=== PATIENT | male | born 1975 | race Two or more races ===

== ENCOUNTER 2018-09-28 03:13 | Emergency (ER) | payer SELFPAY ==
[~2018-09-28] VITALS: Ht 172.7 cm; Wt 77.1 kg
--- NOTE | 2018-09-28 03:40 | NUR ---
PT CAME IN FOR C/O DIFFICULTY SWALLOWING, WITH COUGH, FEELING LIKE SOMETHING IS STUCK IN HIS THROAT AFTER HAVING SOUP, VS STABLE DENIES ANY SOB Addendum: 09/28/18 at 0408 by GKNERY XR SOFT TISSUE NECK.
--- NOTE | 2018-09-28 03:45 | NUR ---
XR CHEST DONE AT BEDSIDE.
--- NOTE | 2018-09-28 04:22 | NUR ---
ER PERFORMED SWALLOW EVAL AT BED SIDE WITH PT, GIVEN A CUP TO DRINK WATER, ABLE TO TOLERATE, WITHOUT COUGHING, WELL GUERO', AWAITING FOR XR RESULTS.
--- NOTE | 2018-09-28 04:53 | NUR ---
XR SOFT TISSUE NECK RESULTS OBTAINED, READ BY ER MD, RECOMMEND CT NECK, ORDER ENTERED, AWAITING SOCIAL SCIENCE ANALYST BY RADIOLOGY.
--- NOTE | 2018-09-28 05:00 | NUR ---
PT TAKEN FOR CT.
--- NOTE | 2018-09-28 05:57 | NUR ---
Patient discharged to home in stable condition. Vs stable, no sob. Written and verbal after care instructions given. Patient verbalizes understanding of instruction.
[2018-09-28 05:58] VITALS: BP 127/85
== END 2018-09-28 05:59 | disposition home or self-care (01) ==
LOC: ER 03:21
DX: R05 Cough (principal); R13.10 Dysphagia, unspecified; R09.89 Other specified symptoms and signs involving the circulatory and respiratory systems
CPT/HCPCS: 70360; 70490; 99284; A4606; Z7610